=== PATIENT | female | born 1990 ===

== ENCOUNTER 2018-02-10 17:23 | Emergency (ER) | payer MEDICAID ==
--- NOTE | 2018-02-10 17:44 | ED PDOC ---
Arrival/HPI - General Time Seen by Provider: 02/10/18 17:40 Historian: Patient - History of Present Illness Narrative History of Present Illness (Text): 02/10/18 17:44 27 year old, female, no significant pmh, nkda, complaining of itching rash x 3 days with no change in soap/clothing/detergent. Itching rash, no fever or chills, no night sweat, no numbness or tingling, no palpitation, no rash, no other medical or psychological complaints. Past Medical History - Provider Review Nursing Documentation Reviewed: Yes - Infectious Disease Hx of Infectious Diseases: None - Psychiatric Hx Substance Use: No - Anesthesia Hx Anesthesia: No Family/Social History - Physician Review Nursing Documentation Reviewed: Yes Family/Social History: Unknown Family HX Smoking Status: Never Smoked Hx Alcohol Use: No Hx Substance Use: No Allergies/Home Meds Allergies/Adverse Reactions: Allergies No Known Allergies Allergy (Verified 04/26/17 18:16) Review of Systems - Review of Systems Constitutional: absent: Fatigue, Fevers Eyes: absent: Vision Changes ENT: absent: Hearing Changes Respiratory: absent: SOB, Cough Cardiovascular: absent: Chest Pain Gastrointestinal: absent: Abdominal Pain, Diarrhea, Nausea, Vomiting Skin: Rash, Pruritis Neurological: absent: Headache, Dizziness Psychiatric: absent: Anxiety, Depression Physical Exam Vital Signs Reviewed: Yes Vital Signs Temp Pulse Resp BP Pulse Ox 02/10/18 18:12 98.2 F 85 18 124/75 98 Temperature: Afebrile Blood Pressure: Normal Pulse: Regular Respiratory Rate: Normal Appearance: Positive for: Well-Appearing, Non-Toxic, Comfortable Pain Distress: None Mental Status: Positive for: Alert and Oriented X 3 - Systems Exam Head: Present: Atraumatic, Normocephalic Pupils: Present: PERRL Extroacular Muscles: Present: EOMI Conjunctiva: Present: Normal Mouth: Present: Moist Mucous Membranes Neck: Present: Normal Range of Motion Respiratory/Chest: Present: Clear to Auscultation, Good Air Exchange. No: Respiratory Distress, Accessory Muscle Use Cardiovascular: Present: Regular Rate and Rhythm, Normal S1, S2. No: Murmurs Abdomen: No: Tenderness, Distention, Peritoneal Signs Back: Present: Normal Inspection Upper Extremity: Present: Normal Inspection. No: Cyanosis, Edema Lower Extremity: Present: Normal Inspection. No: Edema Neurological: Present: GCS=15, Speech Normal, Motor Func Grossly Intact, Gait Normal, Memory Normal Skin: Present: Warm, Dry, Rashes (Rt. lateral thigh region visible approx. [id number] noted with maculepapule borderline region, no cellulitis or streaking, no ulcers, no target signs. ), Normal Color Psychiatric: Present: Alert, Oriented x 3, Normal Insight, Normal Concentration Medical Decision Making ED Course and Treatment: 02/10/18 18:27 -Urine hcg is negative. -Discharge home with lotrisone, keep the skin cool and dry, follow up with your own pmd and machine tank operator within 2 days, keep the skin cool and dry, return to the Emergency room for any new or worsening signs or symptoms. 02/10/18 19:24 -Pt. not satisfied with my evaluation and request oral antifungal, evaluated by Dr. Hooker as well and no indication of the oral antifungal at this time. - PA / HISTOTECHNICIAN / Resident Statement CARA has reviewed & agrees with the documentation as recorded. / has examined the patient and agrees with the treatment plan. Disposition/Present on Arrival - Present on Arrival Any Indicators Present on Arrival: No History of DVT/PE: No History of Uncontrolled Diabetes: No Urinary Catheter: No History of Decub. Ulcer: No History Surgical Site Infection Following: None - Disposition Have Diagnosis and Disposition been Completed?: Yes Diagnosis: Tinea corporis Disposition: HOME/ ROUTINE Disposition Time: 18:29 Patient Plan: Discharge Patient Problems: Current Active Problems Problem Status Onset Tinea corporis Acute Condition: GOOD Additional Instructions: -Discharge home with lotrisone, keep the skin cool and dry, follow up with your own pmd and machine tank operator within 2 days, keep the skin cool and dry, return to the Emergency room for any new or worsening signs or symptoms. Prescriptions: Clotrimazole/Betamethasone [Lotrisone] 1 appl EXT BID #30 g Referrals: Radha Novoa MD [Primary Care Provider] - Follow up with primary [facility] [Outside] - Follow up with primary Nathanael Calderón MD [Staff Provider] - Follow up with primary Forms: WORK NOTE
[2018-02-10 17:56] VITALS: BMI 27.4
[2018-02-10 18:12] VITALS: BP 124/75; PULSE 85; RESP 18; TEMP 98.2; O2SAT 98
== END 2018-02-10 19:03 | disposition home or self-care (01) ==
LOC: ED 17:23
DX: B35.4 Tinea corporis (principal)